=== PATIENT | male | born 1940 | race Caucasian/White ===

== ENCOUNTER 2016-08-19 09:03 | Day surgery (SDC) | payer MEDICARE, BC ==
[~2016-08-19 09:03] MED LIST: Lidocaine 1% with EPINEPHrine 1:100,000 50 ML MDV ONE
[2016-08-19] MEDS ORDERED: Dextrose 5%-Lactated Ringers 1,000 ML IV SCH (09:15)
[2016-08-19] MEDS ORDERED: ceFAZolin 2 GM in Premix Bag 1 BAG IV ONE (09:30)
[2016-08-19] MEDS ORDERED: Albuterol/Ipratropium 3.0-0.5 MG/3 ML Neb Soln NEB ONE (09:30)
[2016-08-19] MEDS ORDERED: Propofol 200 MG/20 ML SDV ONE (11:37)
[2016-08-19] MEDS ORDERED: Lidocaine 0.5% 50 ML SDV ONE (11:39)
[2016-08-19] MEDS ORDERED: Midazolam 1 MG/ML 2 ML SDV ONE (11:47)
[2016-08-19] MEDS ORDERED: fentaNYL 100 MCG/2 ML SDV ONE (11:47)
[2016-08-19] MEDS ORDERED: Ketorolac 60 MG/2 ML SDV ONE (12:47)
[2016-08-19 13:33] VITALS: BP 130/83
--- NOTE | 2016-08-21 11:31 | OR ---
DATE OF PROCEDURE: 08/19/2016 PREOPERATIVE DIAGNOSIS: Left carpal tunnel syndrome. POSTOPERATIVE DIAGNOSIS: Left carpal tunnel syndrome. PROCEDURE: Left carpal tunnel release (10925). ANESTHESIA: IV block plus sedation. [employer]: [employer]RIC[employer] Cristina. INDICATION FOR PROCEDURE: This is a 76-year-old male presenting with a left carpal tunnel syndrome, this being confirmed by EMG. After preoperative evaluations and discussion, he wished to proceed with a carpal tunnel release. Potential risks including bleeding, infection, injury to the underlying median nerve and/or its branches, possible incomplete relief of symptoms were all reviewed, and the patient wishes to proceed. DETAILS OF PROCEDURE: The patient was taken to the operating room and placed in a supine position. IV block was placed affecting the left forearm and hand while the patient received ongoing IV sedation. The left forearm and hand were then prepped and draped. A standard carpal tunnel incision was made and carried down through the skin and subcutaneous tissue and the transverse carpal ligament was then identified and divided for its length including extending into the palmar hand. Once this was entirely freed up, the median nerve was inspected and found to be intact. This was very tight compressed median nerve prior to release of the thickened transverse carpal ligament. At that point, no further problems were noted and the subdermal tissues were approximated with 4-0 Vicryl stitch and skin with a 5-0 Prolene skin stitch. Dressing was applied. The patient was taken to the recovery room in satisfactory condition. Walter Yoon MD /[id number]
== END 2016-08-19 13:55 | disposition home or self-care (01) ==
LOC: JP.SDS 09:03
PROVIDERS: ATTEND Surgery
DX: G56.02 Carpal tunnel syndrome, left upper limb (principal); Z79.899 Other long term (current) drug therapy; Z88.8 Allergy status to other drugs, medicaments and biological substances
CPT/HCPCS: 64721; J0690; J1885; J2250; J2704; J3010; J7042; J7620

== ENCOUNTER 2019-10-30 14:35 | Emergency (ER) | payer MEDICARE, BC ==
--- NOTE | 2019-10-30 15:18 | EDM.PDOC ---
ED HPI GENERAL MEDICAL PROBLEM - General Chief Complaint: General Stated Complaint: VISION ISN'T CLEAR Time Seen by Provider: 10/30/19 15:16 Source of Information: Reports: Patient, Family History Limitations: Reports: No Limitations - History of Present Illness Onset: Today Location: Reports: Head - Related Data Allergies Allergy/AdvReac Type Severity Reaction Status Date / Time atorvastatin Allergy Cannot Verified 11/21/18 11:03 Remember Home Meds: Home Meds Aspirin 81 mg PO DAILY 02/26/14 [History] Nitroglycerin [Nitrostat] 0.4 mg SL ASDIRECTED PRN 02/26/14 [History] Ranitidine [Zantac] 75 mg PO DAILY 02/26/14 [History] Sertraline [Zoloft] 25 mg PO BEDTIME 02/26/14 [History] Simvastatin [Zocor] 20 mg PO BEDTIME 02/26/14 [History] Zolpidem Tartrate [Ambien] 10 mg PO BEDTIME PRN 02/26/14 [History] busPIRone [Buspar] 7.5 mg PO DAILY 02/26/14 [History] lisinopriL [Prinivil] 10 mg PO DAILY 02/26/14 [History] Albuterol Sulfate [Proair Hfa] 2 inh IH Q4H PRN 08/18/16 [History] Esomeprazole [NexIUM] 20 mg PO DAILY 08/18/16 [History] Naproxen Sodium [Aleve] 220 mg PO DAILY PRN 08/18/16 [History] LORazepam [Ativan] 0.5 mg PO BID PRN 11/21/18 [History] Past Medical History Cardiovascular History: Reports: Bypass, CAD, High Cholesterol, Hypertension Respiratory History: Reports: Asthma Gastrointestinal History: Reports: GERD Genitourinary History: Reports: Prostate Disorder, Other (See Below) Other Genitourinary History: 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 Musculoskeletal History: Reports: None Psychiatric History: Reports: Anxiety Oncologic (Cancer) History: Reports: Prostate - Past Surgical History Cardiovascular Surgical History: Reports: Coronary Artery Bypass, Other (See Below) Other Cardiovascular Surgeries/Procedures: CABG x3 Respiratory Surgical History: Reports: None GI Surgical History: Reports: Colonoscopy Male Surgical History: Reports: None Musculoskeletal Surgical History: Reports: Carpal Tunnel Oncologic Surgical History: Reports: None Dermatological Surgical History: Reports: None Social & Family History - Family History Family Medical History: Noncontributory - Caffeine Use Caffeine Use: Reports: Coffee, Soda ED ROS GENERAL - Review of Systems Review Of Systems: See Below Constitutional: Reports: No Symptoms HEENT: Reports: Other (blurred vision). Denies: Eye Discharge, Eye Pain, Glasses Respiratory: Reports: No Symptoms Cardiovascular: Reports: No Symptoms Neurological: Denies: Confusion, Dizziness, Headache, Paresthesia, Trouble Speaking, Change in Speech Psychiatric: Reports: No Symptoms ED EXAM, GENERAL - Physical Exam Exam: See Below Exam Limited By: Other (markedly hard of hearing) General Appearance: Alert, WD/WN Eye Exam: Bilateral Eye: EOMI, Normal Fundi, PERRL Ears: Normal External Exam Nose: Normal Inspection Respiratory/Chest: No Respiratory Distress Cardiovascular: Normal Peripheral Pulses, Regular Rate, Rhythm, No JVD Extremities: Normal Inspection, Normal Range of Motion Neurological: Alert, Oriented, Normal Cognition, Normal Reflexes, No Mot or/Sensory Deficits Psychiatric: Normal Affect, Normal Mood Course - Vital Signs Text/Narrative:: No abnormality on screening neurologic exam. Will perform CT scan to make sure the patient has had no new intracranial process. Otherwise would recommend the patient be followed up by an conveyor line bakery worker . There is no explanation for vision changes on the CT scan. We'll recommend to the patient that he follow up with conveyor line bakery worker Last Recorded V/S: Last Vital Signs Temp 35.8 C L 10/30/19 15:35 Pulse 74 10/30/19 16:03 Resp 14 10/30/19 16:03 BP 158/87 H 10/30/19 16:03 Pulse Ox 96 10/30/19 16:03 Departure - Departure Time of Disposition: 16:45 Disposition: Home, Self-Care 01 Condition: Good Clinical Impression: Blurred vision, bilateral - Discharge Information Instructions: Blurred Vision, Adult Referrals: Hugo Sanchez MD [Primary Care Provider] - Forms: ED Department Discharge Additional Instructions: CT scan shows no cause for blurred vision in the brain. see an conveyor line bakery worker as soon as possible Sepsis Event Note (ED) - Focused Exam Vital Signs: Vital Signs Temp Pulse Resp BP Pulse Ox 10/30/19 16:03 74 14 158/87 H 96 10/30/19 15:35 35.8 C L 76 17 145/78 H 96 10/30/19 15:24 76 17 145/78 H 96 10/30/19 14:59 35.8 C L 76 22 H 134/72 97
[2019-10-30 16:04] VITALS: BP 158/87; PULSE 74
--- NOTE | 2019-10-30 16:36 | CRLCT ---
INDICATION: Vision changes TECHNIQUE: Head CT without contrast. COMPARISON: None FINDINGS: CSF spaces: Within normal limits for age. Brain parenchyma: There are nonspecific low attenuation white matter changes consistent with chronic microvascular disease. No sign of mass, hemorrhage, or midline shift. Skull base and calvarium: The visualized paranasal sinuses and mastoid air cells demonstrate no acute or significant findings. The visualized orbits are grossly unremarkable. No skull fractures. There is intracranial atherosclerosis. IMPRESSION: 1. No acute findings. 2. Nonspecific white matter disease, typical of chronic microvascular disease. Please note that all CT scans at this facility use dose modulation, iterative reconstruction, and/or weight-based dosing when appropriate to reduce radiation dose to as low as reasonably achievable. Dictated by Nirmala Baez MD @ Oct 30 2019 4:33PM Signed by Dr. Nirmala Baez @ Oct 30 2019 4:35PM
== END 2019-10-30 16:58 | disposition home or self-care (01) ==
LOC: JP.ED 14:35
DX: H53.8 Other visual disturbances (principal); I10 Essential (primary) hypertension; E78.00 Pure hypercholesterolemia, unspecified; I25.10 Atherosclerotic heart disease of native coronary artery without angina pectoris; K21.9 Gastro-esophageal reflux disease without esophagitis; J45.909 Unspecified asthma, uncomplicated; F41.9 Anxiety disorder, unspecified; Z95.1 Presence of aortocoronary bypass graft; Z88.8 Allergy status to other drugs, medicaments and biological substances; Z79.82 Long term (current) use of aspirin; Z79.899 Other long term (current) drug therapy
CPT/HCPCS: 70450; 99282; 99284-25

== ENCOUNTER 2021-06-01 10:19 | Emergency (ER) | payer MEDICARE, BC ==
[2021-06-01 10:43] VITALS: BP 149/68; PULSE 74
== END 2021-06-01 12:05 | disposition home or self-care (01) ==
LOC: JP.ED 10:19
DX: R07.89 Other chest pain (principal); I25.10 Atherosclerotic heart disease of native coronary artery without angina pectoris; E78.00 Pure hypercholesterolemia, unspecified; I10 Essential (primary) hypertension; K21.9 Gastro-esophageal reflux disease without esophagitis; Z86.73 Personal history of transient ischemic attack (TIA), and cerebral infarction without residual deficits; Z88.8 Allergy status to other drugs, medicaments and biological substances; Z79.82 Long term (current) use of aspirin; Z79.899 Other long term (current) drug therapy; Z95.1 Presence of aortocoronary bypass graft
CPT/HCPCS: 36415; 84484; 93005; 93010; 99282; 99284-25

== ENCOUNTER 2024-11-11 13:13 | Emergency (ER) | payer MEDICARE, BC ==
[2024-11-11 13:55] VITALS: BP 130/34; PULSE 93
== END 2024-11-11 14:42 | disposition home or self-care (01) ==
LOC: JP.ED 13:13
DX: T16.2XXA Foreign body in left ear, initial encounter (principal); I10 Essential (primary) hypertension; I25.10 Atherosclerotic heart disease of native coronary artery without angina pectoris; E78.00 Pure hypercholesterolemia, unspecified; Z79.899 Other long term (current) drug therapy; Z79.82 Long term (current) use of aspirin; Z88.8 Allergy status to other drugs, medicaments and biological substances; Z87.891 Personal history of nicotine dependence
CPT/HCPCS: 99283